=== PATIENT | male | born 1970 | race Caucasian/White ===

== ENCOUNTER 2017-09-14 10:26 | Observation (INO) ==
[2017-09-14 10:56] LABS: Basophils # 0.1 K/mcL (0.0-0.2); Basophils % 0.7 %; Eosinophils # 0.3 K/mcL (0.0-0.6); Hematocrit 47.8 % (37.5-50.1); Hemoglobin 15.1 g/dL (12.9-16.9); Immature Granulocytes % 0.7 % (0-4); Lymphocytes % 26.5 %; Mean Corpuscular HGB Conc 31.6 g/dL (31.6-35.5); Mean Corpuscular Hemoglobin 27.2 pg (28.0-33.3); Mean Corpuscular Volume 86.1 fL (83.0-100.0); Mean Platelet Volume 9.2 fL (9.4-12.4); Monocytes # 0.7 K/mcL (0.0-1.3); Neutrophils # 7.1 K/mcL (1.6-8.9); Platelet Count 396 K/mcL (140-400); Red Blood Count 5.55 M/mcL (4.19-5.50); Red Cell Distribution Width 14.5 % (11.5-14.5); Segmented Neutrophils % 63.1 %
[2017-09-14 10:57] LABS: Bilirubin,Urine Negative (Negative); Blood,Urine Negative (Negative); Clarity,Urine Clear (Clear); Color,Urine Yellow (Yellow); Glucose,Urine (UA) Normal (Normal); Ketones,Urine Negative (Negative); Leukocyte Esterase,Urine Negative (Negative); Nitrite,Urine Negative (Negative); PH,Urine 5.5 pH Units (5.0-8.0); Protein,Urine Negative (Neg-Trace); Specific Gravity,Urine 1.028 (1.010-1.025); Urobilinogen,Urine Normal (Normal)
--- NOTE | 2017-09-14 11:00 | Emergency Department Note ---
Disposition Clinical Impression: Suicidal ideation Depression Qualifiers: Depression Type: major depressive disorder Active/Remission status: currently active Major depression episode severity: severe Psychotic features: without psychotic features Disposition: Admitted As Inpatient Condition: Fair Referrals: NONE,PCP [Primary Care Provider] - Forms: ED Satisfaction Letter Psych HPI - General Chief Complaint: ED Psychiatric Symptoms Stated Complaint: SI Time Seen by Provider: 09/14/17 10:38 Source: patient Mode of arrival: private vehicle Limitations: no limitations Nursing Notes Reviewed: Yes Vital Signs Reviewed: Yes - History of Present Illness HPI Narrative: 47-year-old male presents to the ER with a chief complaint of suicidal ideation. Reports that he has not felt well for the last few days. He states this happened once before year ago when he was admitted. He states he is currently no longer on any medications as he had bad reactions to them. States that he was going to overdose on pills before still has that. He reports he does have weapons at home. No auditory or visual hallucinations. Denies any Alcohol or drug use. Pt complaint: suicidal ideation Onset (ago): day(s) Duration: constant History of similar episodes: Yes Improves with: none Worsens with: none Alleged intoxication: No Associated Psychiatric Symptoms: suicidal ideation Associated symptoms: Reports: denies other symptoms Traumatic symptoms: denies traumatic injury Treatments prior to arrival: none Self harm or harm to others: admits thoughts of self harm, has plan - Related Data Home Medications Medication Instructions Recorded Confirmed Aspirin [Ecotrin] 162 mg PO DAILY 09/17/16 09/14/17 Gabapentin [Neurontin] 800 mg PO BID 09/17/16 09/14/17 Lisinopril [Zestril] 5 mg PO DAILY 09/17/16 09/14/17 Pioglitazone HCl [Actos] 30 mg PO DAILY 09/17/16 09/14/17 glyBURIDE [GlyBURIDE] 5 mg PO BIDWM 09/17/16 09/14/17 metFORMIN [Glucophage] 1,000 mg PO BIDWM 09/17/16 09/14/17 Clopidogrel [Plavix] 75 mg PO DAILY 12/15/16 09/14/17 Atorvastatin [Lipitor] 40 mg PO HS 02/25/17 09/14/17 Pantoprazole Sodium [Protonix] 40 mg PO DAILY 02/25/17 09/14/17 Previous Rx's Medication Instructions Recorded Ranitidine HCl [Acid Physical Science Professor] 150 mg PO BID #14 tablet 09/03/17 Sucralfate [Carafate] 1 gm PO QIDAC #12 tablet 09/03/17 Allergies Allergy/AdvReac Type Severity Reaction Status Date / Time armodafinil [From Nuvigil] Allergy Difficulty Verified 09/03/17 10:38 Breathing ceftriaxone [From Rocephin] Allergy See Verified 09/03/17 10:38 Comments Iodinated Contrast- Oral and Allergy Shakiness Verified 09/03/17 10:38 IV Dye [Iodinated Contrast Media - Oral and] tapentadol [From Nucynta] Allergy Difficulty Verified 09/03/17 10:38 Breathing escitalopram [From Lexapro] AdvReac Depression Verified 09/14/17 10:34 [place] AdvReac Depression Verified 09/14/17 10:34 All systems ED: reviewed and negative except as stated. Psychiatric: Reports: anxiety, depression, suicidal thoughts. Denies: homicidal thoughts, auditory hallucinations, visual hallucinations Past Medical History - Past Medical History Attestation: Yes The following information was validated with the patient. Source: patient Medical history: Reports: arthritis, coronary artery disease, diabetes, GERD, hypertension, TIA, other Surgical history: Reports: appendectomy, cholecystectomy Psychiatric history: Reports: anxiety, depression, panic disorder - Social History Smoking Status: Never smoker Smokeless Tobacco Status: No Alcohol use: Reports: none Drug use: Reports: none Physical Exam - General Limitations: no limitations General appearance: alert, in no apparent distress - Head Head exam: atraumatic, normocephalic - Eye Eye exam: Present: normal appearance - ENT ENT exam: normal exam - Neck Neck exam: Present: normal inspection, full ROM - Chest Chest inspection: Present: normal inspection, symmetric chest wall rise - Respiratory Respiratory exam: Present: normal lung sounds bilaterally - Cardiovascular Cardiovascular exam: Present: regular rate, normal rhythm, normal heart sounds - Abdominal Exam Abdominal exam: Present: soft, Non-Tender. Absent: tenderness - Extremities Exam Extremities exam: Present: normal inspection, full ROM - Expanded Upper Extremity Exam Shoulder exam: Present: normal inspection, full ROM Arm exam: Present: normal inspection, full ROM Elbow exam: Present: normal inspection, full ROM Forearm/Wrist exam: Present: normal inspection, full ROM Hand exam: Present: normal inspection, full ROM - Expanded Lower Extremity Exam Hip/Pelvis exam: Present: normal inspection, full ROM Upper leg exam: Present: normal inspection, full ROM Knee exam: Present: normal inspection, full ROM Lower leg exam: Present: normal inspection, full ROM Ankle exam: Present: normal inspection, full ROM Foot/toe exam: Present: normal inspection, full ROM - Psychiatric Psychiatric exam: Present: anxious Course Course Narrative: Patient seen and examined. We will get medical clearance labs. He is also pink slipped for suicidal ideation - Reevaluation(s) Reevaluation #1: Patient medically cleared. Will be evaluated by the psychiatric team. Vital Signs Temperature 97.7 F 09/14/17 10:29 Pulse Rate 76 09/14/17 10:29 Respiratory Rate 20 09/14/17 10:29 Blood Pressure 148/78 09/14/17 10:29 O2 Sat by Pulse Oximetry 94 09/14/17 10:29 Temperature 97.7 F 09/14/17 10:29 Pulse Rate 76 09/14/17 10:29 Respiratory Rate 20 09/14/17 10:29 Blood Pressure 148/78 09/14/17 10:29 O2 Sat by Pulse Oximetry 94 09/14/17 10:29 Oxygen Delivery Oxygen Delivery Room Air Psych - MDM Narrative Medical decision making narrative: This documentation is done with the assistance of Dragon dictation. There may be inaccuracies in cdl bulk driver or spelling and typographical errors. I examined this patient and my medical decision-making was reviewed with the Resident Physician. I agree with the documented findings, disposition and treatment plan as described except to the extent set forth below. Patient seen and evaluated by Dr. Higgins and myself, I agree with his evaluation and treatment plan, supervised the care of the patient's stay. Patient has a history of depression and suicidal ideations. He said he felt like harming himself today. He did not go into the details but says he thinks he take pills. He said he thinks he may need admitted. He made him a no AMA, 72 hour hold for him. Lab work and then 1A evaluation. He is in agreement with this plan and is cooperative. 1300 hrs.: Patient's labs are back. 1A has evaluated him and agree that he needs admission. There are no beds here so they will hold him for psychiatric placement. He is in agreement with this plan. We will go an order him something to eat. 1400 hrs.: Psychiatric consultation is completed they thought they would have to transfer him out but a bed did become available certainly keep him here. Patient's agreement this plan. - Lab Data Lab results reviewed: Yes I reviewed the patient's lab results. Result diagrams: 09/14/17 10:49 09/14/17 10:49 Lab Results 09/14/17 09/14/17 09/14/17 Range/Units 10:48 10:48 10:49 WBC 11.2 H (4.3-11.1) K/mcL RBC 5.55 H (4.19-5.50) M/mcL Hgb 15.1 (12.9-16.9) g/dL Hct 47.8 (37.5-50.1) % MCV 86.1 (83.0-100.0) fL MCH 27.2 L (28.0-33.3) pg MCHC 31.6 (31.6-35.5) g/dL RDW 14.5 (11.5-14.5) % Plt Count 396 (140-400) K/mcL MPV 9.2 L (9.4-12.4) fL Immature Gran % 0.7 (0-4) % Seg Neutrophils % 63.1 % Lymphocytes % 26.5 % Monocytes % 6.0 % Eosinophils % 3.0 % Basophils % 0.7 % Neutrophils # 7.1 (1.6-8.9) K/mcL Lymphocytes # 3.0 (0.6-4.6) K/mcL Monocytes # 0.7 (0.0-1.3) K/mcL Eosinophils # 0.3 (0.0-0.6) K/mcL Basophils # 0.1 (0.0-0.2) K/mcL Sodium (136-145) mEq/L Potassium (3.5-5.1) mEq/L Chloride (98-107) mEq/L Carbon Dioxide (23-29) mEq/L BUN (6-20) mg/dL Creatinine (0.70-1.30) mg/dL Est GFR ( Amer) (> 60) Est GFR (Non-Af Amer) (> 60) BUN/Creatinine Ratio (6-26) Glucose (70-105) mg/dL Calculated Osmolality (280-300) Calcium (8.6-10.3) mg/dL TSH (0.340-5.600) mcIU/mL Urine Color Yellow (Yellow) Urine Clarity Clear (Clear) Urine pH 5.5 (5.0-8.0) pH Units Ur Specific [place] 1.028 H (1.010-1.025) Urine Protein Negative (Neg-Trace) mg/dL Urine Glucose (UA) Normal (Normal) mg/dL Urine Ketones Negative (Negative) mg/dL Urine Blood Negative (Negative) Urine Nitrite Negative (Negative) Urine Bilirubin Negative (Negative) Urine Urobilinogen Normal (Normal) mg/dL Ur Leukocyte Esterase Negative (Negative) Salicylates (15.0-30.0) mg/dL Urine Opiates Screen Negative (Ifqkdv=285) ng/mL Acetaminophen (10-30) mcg/mL Ur Barbiturates Screen Negative (Pczvec=315) ng/mL Ur Phencyclidine Scrn Negative (Cutoff=25) ng/mL Ur Amphetamines Screen Negative (Drsctg=9431) ng/mL U Benzodiazepines Scrn Negative (Yvaemc=650) ng/mL Urine Cocaine Screen Negative (Cutoff= 300) ng/mL U Marijuana (THC) Screen Negative (Cutoff = 50) ng/mL Ethyl Alcohol (0-10) mg/dL 09/14/17 Range/Units 10:49 WBC (4.3-11.1) K/mcL RBC (4.19-5.50) M/mcL Hgb (12.9-16.9) g/dL Hct (37.5-50.1) % MCV (83.0-100.0) fL MCH (28.0-33.3) pg MCHC (31.6-35.5) g/dL RDW (11.5-14.5) % Plt Count (140-400) K/mcL MPV (9.4-12.4) fL Immature Gran % (0-4) % Seg Neutrophils % % Lymphocytes % % Monocytes % % Eosinophils % % Basophils % % Neutrophils # (1.6-8.9) K/mcL Lymphocytes # (0.6-4.6) K/mcL Monocytes # (0.0-1.3) K/mcL Eosinophils # (0.0-0.6) K/mcL Basophils # (0.0-0.2) K/mcL Sodium 137 (136-145) mEq/L Potassium 4.1 (3.5-5.1) mEq/L Chloride 103 (98-107) mEq/L Carbon Dioxide 26 (23-29) mEq/L BUN 9 (6-20) mg/dL Creatinine 0.80 (0.70-1.30) mg/dL Est GFR ( Amer) > 60 (> 60) Est GFR (Non-Af Amer) > 60 (> 60) BUN/Creatinine Ratio 11 (6-26) Glucose 150 H (70-105) mg/dL Calculated Osmolality 286 (280-300) Calcium 9.3 (8.6-10.3) mg/dL TSH 2.632 (0.340-5.600) mcIU/mL Urine Color (Yellow) Urine Clarity (Clear) Urine pH (5.0-8.0) pH Units Ur Specific [place] (1.010-1.025) Urine Protein (Neg-Trace) mg/dL Urine Glucose (UA) (Normal) mg/dL Urine Ketones (Negative) mg/dL Urine Blood (Negative) Urine Nitrite (Negative) Urine Bilirubin (Negative) Urine Urobilinogen (Normal) mg/dL Ur Leukocyte Esterase (Negative) Salicylates < 5.0 L (15.0-30.0) mg/dL Urine Opiates Screen (Jazvpk=421) ng/mL Acetaminophen < 1.0 L (10-30) mcg/mL Ur Barbiturates Screen (Zbkxaj=385) ng/mL Ur Phencyclidine Scrn (Cutoff=25) ng/mL Ur Amphetamines Screen (Dveggx=8666) ng/mL U Benzodiazepines Scrn (Liueoo=071) ng/mL Urine Cocaine Screen (Cutoff= 300) ng/mL U Marijuana (THC) Screen (Cutoff = 50) ng/mL Ethyl Alcohol < 10 (0-10) mg/dL Psychiatric Medical Clearance - Medical Clearance Checklist Medical History: Suicidal ideation (Acute) Depression (Acute) Abdominal pain (Inactive) Anxiety disorder (Inactive) Depression (Inactive) Peptic ulcer (Inactive) Vertigo (Inactive) No Social History Section defined Current Vitals: Last Vital Signs Temp 97.7 F 09/14/17 10:29 Pulse 76 09/14/17 10:29 Resp 20 09/14/17 10:29 BP 148/78 09/14/17 10:29 Pulse Ox 94 09/14/17 10:29 Psychiatric Lab Panel: Drug Levels and Toxicity 09/14/17 09/14/17 10:48 10:49 Urine Opiates Screen Negative Acetaminophen < 1.0 L Ur Barbiturates Screen Negative Ur Phencyclidine Scrn Negative Ur Amphetamines Screen Negative U Benzodiazepines Scrn Negative Urine Cocaine Screen Negative U Marijuana (THC) Screen Negative Ethyl Alcohol < 10 Abnormal Labs: Abnormal lab results WBC 11.2 K/mcL (4.3-11.1) H 09/14/17 10:49 RBC 5.55 M/mcL (4.19-5.50) H 09/14/17 10:49 MCH 27.2 pg (28.0-33.3) L 09/14/17 10:49 MPV 9.2 fL (9.4-12.4) L 09/14/17 10:49 Glucose 150 mg/dL (70-105) H 09/14/17 10:49 Ur Specific [place] 1.028 (1.010-1.025) H 09/14/17 10:48 Salicylates < 5.0 mg/dL (15.0-30.0) L 09/14/17 10:49 Acetaminophen < 1.0 mcg/mL (10-30) L 09/14/17 10:49
[2017-09-14 11:07] LABS: Amphetamine Screen,Urine Negative ng/mL (Cutoff=1000); Barbiturate Screen,Urine Negative ng/mL (Cutoff=200); Benzodiazepines Screen,Urine Negative ng/mL (Cutoff=200); Cannabinoid Screen,Urine Negative ng/mL (Cutoff = 50); Cocaine Screen,Urine Negative ng/mL (Cutoff= 300); Opiate Screen,Urine Negative ng/mL (Cutoff=300); Phencyclidine Screen,Urine Negative ng/mL (Cutoff=25)
[2017-09-14 11:11] LABS: Acetaminophen < 1.0 mcg/mL (10-30); Ethanol < 10 mg/dL (0-10); Salicylate < 5.0 mg/dL (15.0-30.0)
[2017-09-14 11:19] LABS: BUN/Creatinine Ratio 11 (6-26); Blood Urea Nitrogen 9 mg/dL (6-20); Calcium 9.3 mg/dL (8.6-10.3); Carbon Dioxide 26 mEq/L (23-29); Chloride 103 mEq/L (98-107); Glucose 150 mg/dL (70-105); Osmolality,Calculated 286 (280-300); Potassium 4.1 mEq/L (3.5-5.1); Sodium 137 mEq/L (136-145); eGFR For African Americans > 60 (> 60); eGFR For Non-African Americans > 60 (> 60)
[2017-09-14 11:46] LABS: Thyroid Stimulating Hormone 2.632 mcIU/mL (0.340-5.600)
[2017-09-14] MEDS ORDERED: Haloperidol Lactate 5 MG/ML VIAL IM PRN (16:32)
[2017-09-14] MEDS ORDERED: traZODone 50 MG TABLET PO PRN (16:32)
[2017-09-14] MEDS ORDERED: MOM Conc 10 ML UD.LIQ PO PRN (16:32)
[2017-09-14] MEDS ORDERED: hydrOXYzine pamoate 25 MG CAPSULE PO PRN (16:32)
[2017-09-14] MEDS ORDERED: *HR* LORazepam 2 MG/ML VIAL IM PRN (16:32)
[2017-09-14] MEDS ORDERED: Acetaminophen 325 MG TABLET PO PRN (16:32)
[2017-09-14] MEDS ORDERED: *HR* LORazepam 1 MG TABLET PO PRN (16:32)
[2017-09-14] MEDS ORDERED: Mag Hydrox/Al Hydrox/Simeth 30 ML UDC PO PRN (16:32)
[2017-09-14] MEDS: Sucralfate 1 GM TABLET PO SCH ×2 (17:40→21:08)
[2017-09-14] MEDS: *HR* Metformin 500 MG TABLET PO SCH (17:40)
[2017-09-14] MEDS: *HR* GlyBURIDE 5 MG TABLET PO SCH (17:47)
[2017-09-14] MEDS: Gabapentin 400 MG CAPSULE PO SCH (21:08)
[2017-09-14] MEDS: Famotidine 20 MG TABLET PO SCH (21:08)
[2017-09-14] MEDS ORDERED: Aspirin Enteric Coated 81 MG Tablet PO SCH (22:00)
[2017-09-15] MEDS: Gabapentin 400 MG CAPSULE PO SCH (08:11)
[2017-09-15] MEDS: *HR* Metformin 500 MG TABLET PO SCH (08:11)
[2017-09-15] MEDS: Sucralfate 1 GM TABLET PO SCH ×2 (08:11→11:35)
[2017-09-15] MEDS: *HR* GlyBURIDE 5 MG TABLET PO SCH (08:12)
[2017-09-15] MEDS: Famotidine 20 MG TABLET PO SCH (08:12)
[2017-09-15] MEDS ORDERED: *HR* Pioglitazone 30 MG TABLET PO SCH (09:00)
[2017-09-15 09:20] VITALS: BP 139/70
--- NOTE | 2017-09-15 13:35 | Discharge Summary ---
Date of Encounter: 09/15/17 Time of Encounter: 13:00 History of Present Illness Chief complaint: "if this was how life was going to be, that I don't want to live". Admitted From: Emergency Dept History of Present Illness: Mr. Guillaume is a 47 year old male who had been admitted to the unit previously but was transferred to a medical floor secondary to the concern that he may have had another TIA while on the unit. He experienced dizziness and tingling in his hands. He couldn't focus and speak even though he was trying to. Finally he was able to verbalize his thoughts and this felt very much like the TIA he had before. He said he was not actively suicidal, but felt like he was so depressed that "if this was how life was going to be, that I don't want to live ". He told me that he was struggling in his personal life and also at work secondary to his issues. "My boss wants to fire me but HR won't let him." He denies any SI/SIB/HI now. No Auditory or visual hallucinations. He felt hopeful that if he worked on correcting his medical issues, it would help his mental health. He was moved to the medical floor for evaluation and treatment. Past Med Surg Social Fam HX - Past Medical History Medical history: arthritis, coronary artery disease, diabetes, GERD, hypertension, TIA, other - Past Psychiatric History Psychiatric history: Reports: anxiety, depression, previous psychiatric hospitalization Past psychiatric history details: sporadic history of outpatient treatment. None compliance with meds secondary to side effects. Both they were effective at times. Family psychiatric history: Yes (All three of his children) Family History of Suicide: None - Past Surgical History Surgical History: appendectomy, cholecystectomy - Social History Smoking Status: Never smoker Smokeless Tobacco Status: No Alcohol use: none Drug use: none Occupational status: employed Current living situation: Home - Independent Activity Level: Independent ambulation Recent Out of Country Travel Within the Last 8 Weeks: No Exposure or Possible Exposure to Illness During Travel: No - Family History Father History Unknown: Yes Adopted: No Hx Family Cardiac Disorders: Yes (PR) Hx Family Respiratory Disorders: No Hx Family Cancer: No Hx Family GI Disorders: Yes (Acid reflux) Hx Family Genitourinary Disorders: Yes (Renal disease) Hx Family Endocrine Disorder: No Hx Family Musculoskeletal Disorders: No Hx Family Neuromuscular Disorders: No Hx Family Neurologic Disorders: No Hx Family HEENT Disorders: No Hx Family Autoimmune Disorders: No Hx Family Reproductive Disorders: No Hx Family Psychosocial Disorders: No Hx Family Medical Disorders: No Medications - Discharge Medications Aspirin [Ecotrin] 162 mg PO DAILY 09/17/16 [History] Gabapentin [Neurontin] 800 mg PO BID 09/17/16 [History] Lisinopril [Zestril] 5 mg PO DAILY 09/17/16 [History] Pioglitazone HCl [Actos] 30 mg PO DAILY 09/17/16 [History] glyBURIDE [GlyBURIDE] 5 mg PO BIDWM 09/17/16 [History] metFORMIN [Glucophage] 1,000 mg PO BIDWM 09/17/16 [History] Clopidogrel [Plavix] 75 mg PO DAILY 12/15/16 [History] Atorvastatin [Lipitor] 40 mg PO HS 02/25/17 [History] Pantoprazole Sodium [Protonix] 40 mg PO DAILY 02/25/17 [History] FLUoxetine HCl [Prozac] 20 mg PO DAILY 30 Days #30 capsule 09/19/17 [Rx] Famotidine [Pepcid] 20 mg PO BID tablet 09/19/17 [Rx] hydrOXYzine pamoate [HydrOXYzine Pamoate] 25 mg PO TID PRN 30 Days #60 capsule 09/19/17 [Rx] traZODone [TraZODone] 50 mg PO HS PRN 30 Days #30 tablet 09/19/17 [Rx] 3 Allergy/AdvReac Type Severity Reaction Status Date / Time armodafinil [From Nuvigil] Allergy Difficulty Verified 09/03/17 10:38 Breathing ceftriaxone [From Rocephin] Allergy See Verified 09/03/17 10:38 Comments Iodinated Contrast- Oral and Allergy Shakiness Verified 09/03/17 10:38 IV Dye [Iodinated Contrast Media - Oral and] tapentadol [From Nucynta] Allergy Difficulty Verified 09/03/17 10:38 Breathing escitalopram [From Lexapro] AdvReac Depression Verified 09/14/17 10:34 [place] AdvReac Depression Verified 09/14/17 10:34 Review of Systems Respiratory: Reports: other (SOB) Musculoskeletal: Reports: back pain, other (weakness) Neurological: Reports: weakness, confusion, other (expressive aphasia) Psychiatric: Reports: depression, anxiety, confusion, difficulty concentrating Mental Status Exam - Mental Status Exam Patient orientation: Yes Person, Yes Time, Yes Place, Yes Circumstance Level of alertness: Sedated Patient appearance: Unkempt, Obese (morbid) Behavior: anxious, tearful Psychomotor activity: Slowed (tired) Eye contact: Maintains Eye Contact Mood description: Depressed, Anxious Affect description: congruent with mood Speech pattern: Normal rate, Normal rhythm, Normal tone, Appropriate Speech Volume: Normal Thought process: Intact, Logical, Linear, Goal Oriented Thought Content: Yes Intact Judgment: Fair Insight: Partial Results - Vital Signs Vital signs: Temp Pulse Resp BP Pulse Ox 97.0 F L 68 18 139/70 96 09/15/17 09:00 09/15/17 09:00 09/15/17 09:00 09/15/17 09:00 09/14/17 15:06 - Labs Labs: Laboratory Last Values WBC 11.2 K/mcL (4.3-11.1) H 09/14/17 10:49 RBC 5.55 M/mcL (4.19-5.50) H 09/14/17 10:49 Hgb 15.1 g/dL (12.9-16.9) 09/14/17 10:49 Hct 47.8 % (37.5-50.1) 09/14/17 10:49 MCV 86.1 fL (83.0-100.0) 09/14/17 10:49 MCH 27.2 pg (28.0-33.3) L 09/14/17 10:49 MCHC 31.6 g/dL (31.6-35.5) 09/14/17 10:49 RDW 14.5 % (11.5-14.5) 09/14/17 10:49 Plt Count 396 K/mcL (140-400) 09/14/17 10:49 MPV 9.2 fL (9.4-12.4) L 09/14/17 10:49 Immature Gran % 0.7 % (0-4) 09/14/17 10:49 Seg Neutrophils % 63.1 % 09/14/17 10:49 Lymphocytes % 26.5 % 09/14/17 10:49 Monocytes % 6.0 % 09/14/17 10:49 Eosinophils % 3.0 % 09/14/17 10:49 Basophils % 0.7 % 09/14/17 10:49 Neutrophils # 7.1 K/mcL (1.6-8.9) 09/14/17 10:49 Lymphocytes # 3.0 K/mcL (0.6-4.6) 09/14/17 10:49 Monocytes # 0.7 K/mcL (0.0-1.3) 09/14/17 10:49 Eosinophils # 0.3 K/mcL (0.0-0.6) 09/14/17 10:49 Basophils # 0.1 K/mcL (0.0-0.2) 09/14/17 10:49 Sodium 137 mEq/L (136-145) 09/14/17 10:49 Potassium 4.1 mEq/L (3.5-5.1) 09/14/17 10:49 Chloride 103 mEq/L (98-107) 09/14/17 10:49 Carbon Dioxide 26 mEq/L (23-29) 09/14/17 10:49 BUN 9 mg/dL (6-20) 09/14/17 10:49 Creatinine 0.80 mg/dL (0.70-1.30) 09/14/17 10:49 Est GFR ( Amer) > 60 (> 60) 09/14/17 10:49 Est GFR (Non-Af Amer) > 60 (> 60) 09/14/17 10:49 BUN/Creatinine Ratio 11 (6-26) 09/14/17 10:49 Glucose 150 mg/dL (70-105) H 09/14/17 10:49 POC Glucose 151 (58-89) H 09/15/17 06:59 Calculated Osmolality 286 (280-300) 09/14/17 10:49 Calcium 9.3 mg/dL (8.6-10.3) 09/14/17 10:49 TSH 2.632 mcIU/mL (0.340-5.600) 09/14/17 10:49 Urine Color Yellow (Yellow) 09/14/17 10:48 Urine Clarity Clear (Clear) 09/14/17 10:48 Urine pH 5.5 pH Units (5.0-8.0) 09/14/17 10:48 Ur Specific [place] 1.028 (1.010-1.025) H 09/14/17 10:48 Urine Protein Negative mg/dL (Neg-Trace) 09/14/17 10:48 Urine Glucose (UA) Normal mg/dL (Normal) 09/14/17 10:48 Urine Ketones Negative mg/dL (Negative) 09/14/17 10:48 Urine Blood Negative (Negative) 09/14/17 10:48 Urine Nitrite Negative (Negative) 09/14/17 10:48 Urine Bilirubin Negative (Negative) 09/14/17 10:48 Urine Urobilinogen Normal mg/dL (Normal) 09/14/17 10:48 Ur Leukocyte Esterase Negative (Negative) 09/14/17 10:48 Salicylates < 5.0 mg/dL (15.0-30.0) L 09/14/17 10:49 Urine Opiates Screen Negative ng/mL (Mkpnpr=785) 09/14/17 10:48 Acetaminophen < 1.0 mcg/mL (10-30) L 09/14/17 10:49 Ur Barbiturates Screen Negative ng/mL (Iazsqx=407) 09/14/17 10:48 Ur Phencyclidine Scrn Negative ng/mL (Cutoff=25) 09/14/17 10:48 Ur Amphetamines Screen Negative ng/mL (Klyxig=0667) 09/14/17 10:48 U Benzodiazepines Scrn Negative ng/mL (Nqouik=749) 09/14/17 10:48 Urine Cocaine Screen Negative ng/mL (Cutoff= 300) 09/14/17 10:48 U Marijuana (THC) Screen Negative ng/mL (Cutoff = 50) 09/14/17 10:48 Ethyl Alcohol < 10 mg/dL (0-10) 09/14/17 10:49 Diagnosis - Discharge Diagnosis (1) Depression Status: Acute Qualifiers: Depression Type: major depressive disorder Major depression recurrence: recurrent Active/Remission status: currently active Major depression episode severity: severe Psychotic features: without psychotic features Qualified Code(s): F33.2 - Major depressive disorder, recurrent severe without psychotic features (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 You will also see for Cuong Foote for outpatient psychiatric assessment and medication management services. on 10/21/2017 at 8:00am.) Functional capacity at discharge: independent ambulation Overall status at discharge: patient is not back to baseline Disposition: Admitted As Inpatient Provider Date of admission: 09/14/17 14:53 Primary care physician: PCP NONE Consults: 09/15/17 10:28 Consult to Hospitalist [CONS] Stat Consulting Provider: Stanford Wiley Reason for Consult: Rule out TIA Time Notified: 10:30 Call Completed: Yes Hospital Course Hospital course: Mr. Guillaume is a 47 year old male (see HPI)" Does patient wish to continue nicotine replacement upon disc: No - Time Spent with Patient Total time spent providing and/or coordinating discharge services: 25 min Less than 30 minutes Procedures - Procedures Procedures: Medication Management, Supportive Therapy, Group Therapy Quality - Multiple Antipsychotics Patient discharged on 2 or more antipsychotic medications: No
== END 2017-09-15 14:05 | disposition short-term general hospital (02) ==
LOC: EMEROO 10:26 → 1ANU 14:53 → INTOOBSV 14:53 → 1ANU 15:07
PROVIDERS: ADMIT Psychiatry & Neurology Psychiatry; ATTEND Psychiatry & Neurology Psychiatry

== ENCOUNTER 2017-09-15 11:42 | Observation (INO) ==
--- NOTE | 2017-09-15 14:18 | Internal Med History&Physical ---
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 transplanted heart: [place] heart Associated angina: without angina Qualified Code(s): I25.10 - Atherosclerotic heart disease of [place] coronary artery without angina pectoris (4) Obesity Status: Chronic Chronic Qualifiers: Obesity type: due to excess calories Obesity classification: adult class 2 (BMI 35 - 39.9) Serious obesity comorbidity presence: without serious comorbidity Body mass index: unspecified BMI Qualified Code(s): E66.09 - Other obesity due to excess calories (5) Hyperlipemia Status: Chronic Chronic we will repeat lipid profile in a.m. Qualifiers: Hyperlipidemia type: pure hypercholesterolemia Qualified Code(s): E78.00 - Pure hypercholesterolemia, unspecified; E78.0 - Pure hypercholesterolemia (6) HTN (hypertension) Status: Chronic Chronic well controlled Qualifiers: Hypertension type: essential hypertension Qualified Code(s): I10 - Essential (primary) hypertension (7) GERD (gastroesophageal reflux disease) Status: Chronic Chronic without esophagitis Qualifiers: Esophagitis presence: without esophagitis Qualified Code(s): K21.9 - Gastro -esophageal reflux disease without esophagitis (8) Depression Status: Chronic Chronic we will reconsult psych to follow Qualifiers: Depression Type: major depressive disorder Major depression recurrence: recurrent Active/Remission status: currently active Major depression episode severity: severe Psychotic features: without psychotic features Qualified Code(s): F33.2 - Major depressive disorder, recurrent severe without psychotic features (9) Suicidal ideation Status: Chronic Patient just [facility] is no longer suicidal reconsult psych to follow when necessary Internal Medicine - H&P: HPI Chief complaint: difficulty speaking Admitted From: Intrahospital Transfer Plans for Post Hospital Care: Home History of present illness: Mr. Guillaume is a 47 year old male Patient with history of high cholesterol, diabetes, hypertension, CAD said had 2 stents in February of last year done at the [facility] patient also has history of morbid obesity GERD and history of TIA patient was admitted to psych due to suicidal ideation while in the psych unit this morning he had dizziness and an episode of difficulty getting his words out he knew what he wanted to say but when he tried to speak and he could not speak lasted a few seconds to a few minutes and now back to normal. He Is now being admitted to medical service . per psychiatric Dr. Dahl says patient is frustrated because of so much medical problem that is why he was having a suicidal ideation and does not feel that patient will kill himself and that needed his medical problem to be addressed . he is his now being admitted to medical service. He denies any chest pain or shortness of breath no palpitation no more difficulty with speech exam was unremarkable patient will be admitted and have neurological workup for TIA and neurology consult He has seen Dr. marsh in the past... no focal deficit Past Med Surg Social Fam HX - Past Medical History Medical history: arthritis, coronary artery disease, diabetes, GERD, hypertension, TIA, other Psychiatric history: anxiety, depression, panic disorder, other - Past Surgical History Surgical History: appendectomy, cholecystectomy - Social History Smoking Status: Never smoker Smokeless Tobacco Status: No Alcohol use: none Drug use: none - Family History Father Adopted: No Hx Family Cardiac Disorders: Yes ([place]) Hx Family Respiratory Disorders: No Hx Family Cancer: No Hx Family GI Disorders: Yes (Acid reflux) Hx Family Endocrine Disorder: No Hx Family Neuromuscular Disorders: No Hx Family Neurologic Disorders: No Hx Family HEENT Disorders: No Hx Family Autoimmune Disorders: No Internal Medicine - H&P: Meds Aspirin [Ecotrin] 162 mg PO DAILY 09/17/16 [History] Gabapentin [Neurontin] 800 mg PO BID 09/17/16 [History] Lisinopril [Zestril] 5 mg PO DAILY 09/17/16 [History] Pioglitazone HCl [Actos] 30 mg PO DAILY 09/17/16 [History] glyBURIDE [GlyBURIDE] 5 mg PO BIDWM 09/17/16 [History] metFORMIN [Glucophage] 1,000 mg PO BIDWM 09/17/16 [History] Clopidogrel [Plavix] 75 mg PO DAILY 12/15/16 [History] Atorvastatin [Lipitor] 40 mg PO HS 02/25/17 [History] Pantoprazole Sodium [Protonix] 40 mg PO DAILY 02/25/17 [History] Ranitidine HCl [Acid Solution Mixer] 150 mg PO BID #14 tablet 09/03/17 [Rx] Sucralfate [Carafate] 1 gm PO QIDAC #12 tablet 09/03/17 [Rx] 3 Allergy/AdvReac Type Severity Reaction Status Date / Time armodafinil [From Nuvigil] Allergy Difficulty Verified 09/03/17 10:38 Breathing ceftriaxone [From Rocephin] Allergy See Verified 09/03/17 10:38 Comments Iodinated Contrast- Oral and Allergy Shakiness Verified 09/03/17 10:38 IV Dye [Iodinated Contrast Media - Oral and] tapentadol [From Nucynta] Allergy Difficulty Verified 09/03/17 10:38 Breathing escitalopram [From Lexapro] AdvReac Depression Verified 09/14/17 10:34 [place] AdvReac Depression Verified 09/14/17 10:34 All Systems PM: A 10-system review of systems was performed and is negative for pertinent findings except as documented above in the HPI. - Constitutional Constitutional: no chills, no fever(s), no night sweats - EENT Eyes: no change in vision, no discharge, no pain, no photophobia Ears: no ear discharge, no ear pain, no tinnitus Nose, mouth and throat: no dysphagia, no nasal discharge, no neck pain, no sore throat - Cardiovascular Cardiovascular ROS IM: no chest pain, no diaphoresis, no dyspnea, no lightheadedness, no palpitations, no syncope - Respiratory Respiratory: no cough, no dyspnea, no wheezing, no excessive phlegm production - Gastrointestinal Gastrointestinal: no abdominal pain, no diarrhea, no hematemesis, no hematochezia, no melena, no nausea, no vomiting - Musculoskeletal Musculoskeletal ROS IM: no numbness, no tingling - Integumentary Integumentary IM: no rash, no unusual bruising - Neurological Neurological ROS: abnormal speech - Head Head exam: Present: atraumatic, normocephalic - Eye Eye exam: Present: PERRL, conjuntiva pink, sclera anicteric Pupils: Present: PERRL - Neck Neck exam general surgery: Present: supple, trachea midline. Absent: lymphadenopathy - Respiratory Respiratory exam: Present: CTAB. Absent: accessory muscle use, rales, rhonchi, wheezes - Cardiovascular Cardiovascular exam: Present: RRR, +S1, +S2. Absent: diastolic murmur, gallop, rubs, systolic murmur - GI/Abdominal GI/Abdominal exam: Present: normal bowel sounds, soft, no peritoneal signs. Absent: distended, tenderness - Extremities Exam Extremities exam: Present: warm, radial pulses palpable and symmetrical. Absent : calf tenderness, cyanotic, pedal edema - Neurological Exam Neurological exam: Present: CN II-XII intact, oriented X3, no focal deficits. Absent: pronater drift, facial droop, speech deficit - Skin Skin exam: Present: dry, intact
[2017-09-15] MEDS ORDERED: Acetaminophen 325 MG TABLET PO PRN (14:26)
[2017-09-15] MEDS ORDERED: Naloxone 0.4 MG/ML INJ IVP PRN (14:26)
[2017-09-15] MEDS: Sucralfate 1 GM TABLET PO SCH ×2 (17:36→20:23)
--- NOTE | 2017-09-15 17:44 | Neurology - Consult Note ---
Date of Encounter: 09/15/17 Time of Encounter: 17:36 Assessment and Plan (1) TIA (transient ischemic attack) Current Visit: No Status: Acute So, this 47 year old man with multiple medical issues, notably CAd, s/p stent placement, morbid obesity, HTN, hyperlipidemia who developed few episodes of TIA symptoms, mainly short lasting dizziness, associated with speech difficulty , lasting few minutes in duration while on a combination of aspirin and plavix. The Symptoms are short lasting and during the episode he has speech difficulty, dizziness but no focal weakness. Causes can be few, including cardiac and vascular conditions, especially considering his history of CAD, and the fact that he was looking really pale. Therefore cardiac conditions, cardiac dysarrhythima is also in the different. Neurologically, major concerns for TIAs, including anterior and especially posterior circulation TIAs, therefore would recommend CTA of neck and head, MRI of brain without contrast and echo already ordered. Aspirin and plavix is suffice treatment for TIA so will keep him on the regimen. Psychiatry to follow up with his psychiatric issues. Qualifiers: Transient cerebral ischemia type: unspecified Qualified Code(s): G45.9 - Transient cerebral ischemic attack, unspecified History of Present Illness Chief complaint: TIA HPI: Mr. Guillaume is a 47 year old male with PMh significant for CAD, s/p stent placement , anxiety, ATIYA on CPAP, morbid obesity, HTN, history of TIA who developed an episode of dizziness, and speech difficulty while being treated for psychiatric conditions at [facility]. Patient was admitted initially for suicidal ideation. While in the [facility], he developed an episode of dizziness while in sitting position, this was followed by feeling tried, and speech difficulty, could not get the words out and looking pale. Symptoms lasted less than 10 minutes in duration and totally resolved. He has had two other similar spells in the past, within the last one and half years. The first episode was similar with dizziness and speech difficulty. The second episode was more prolonged lasting about 2 hours in duration. He has been taking a combination of plavix and baby aspirin for his cardiac condition and TIAs. He is feeling fine now. He states that he has significant anxiety and he used to take a bunch of medications for his psych issues and one time he was having problems of these medications and he discontinued all of them. he states that when he is alone he got all the thoughts to a point that he wanted to end all of these and he says that he is to be on something. Past Med Surg Social Fam HX - Past Medical History Medical history: arthritis, coronary artery disease, diabetes, GERD, hypertension, TIA, other Psychiatric history: anxiety, depression, panic disorder, other - Past Surgical History Surgical History: appendectomy, cholecystectomy - Social History Smoking Status: Never smoker Smokeless Tobacco Status: No Alcohol use: none Drug use: none - Family History Father Adopted: No Hx Family Cardiac Disorders: Yes ([place]) Hx Family Respiratory Disorders: No Hx Family Cancer: No Hx Family GI Disorders: Yes (Acid reflux) Hx Family Endocrine Disorder: No Hx Family Neuromuscular Disorders: No Hx Family Neurologic Disorders: No Hx Family HEENT Disorders: No Hx Family Autoimmune Disorders: No Medications and Allergies Aspirin [Ecotrin] 162 mg PO DAILY 09/17/16 [History] Gabapentin [Neurontin] 800 mg PO BID 09/17/16 [History] Lisinopril [Zestril] 5 mg PO DAILY 09/17/16 [History] Pioglitazone HCl [Actos] 30 mg PO DAILY 09/17/16 [History] glyBURIDE [GlyBURIDE] 5 mg PO BIDWM 09/17/16 [History] metFORMIN [Glucophage] 1,000 mg PO BIDWM 09/17/16 [History] Clopidogrel [Plavix] 75 mg PO DAILY 12/15/16 [History] Atorvastatin [Lipitor] 40 mg PO HS 02/25/17 [History] Pantoprazole Sodium [Protonix] 40 mg PO DAILY 02/25/17 [History] Ranitidine HCl [Acid Health Science Writer] 150 mg PO BID #14 tablet 09/03/17 [Rx] Sucralfate [Carafate] 1 gm PO QIDAC #12 tablet 09/03/17 [Rx] 3 Allergy/AdvReac Type Severity Reaction Status Date / Time armodafinil [From Nuvigil] Allergy Difficulty Verified 09/03/17 10:38 Breathing ceftriaxone [From Rocephin] Allergy See Verified 09/03/17 10:38 Comments Iodinated Contrast- Oral and Allergy Shakiness Verified 09/03/17 10:38 IV Dye [Iodinated Contrast Media - Oral and] tapentadol [From Nucynta] Allergy Difficulty Verified 09/03/17 10:38 Breathing escitalopram [From Lexapro] AdvReac Depression Verified 09/14/17 10:34 [place] AdvReac Depression Verified 09/14/17 10:34 All Systems: A 10-system review of systems was performed and is negative for pertinent findings except as documented above in the HPI. Physical Examination - Vital Signs Vital Signs: Initial Vital Signs Temp Pulse Resp BP Pulse Ox 97.8 F 71 16 124/72 97 09/15/17 14:21 09/15/17 14:21 09/15/17 14:21 09/15/17 14:21 09/15/17 14:21 - Neurologic Detailed motor examination: full strength in all major muscle groups Motor examination - right side: 5/5: deltoids, biceps, triceps, wrist flexion, wrist extension, manager purchasing, hip flexors, tibialis Anterior, quadriceps, toe extension (EHL), plantarflexion Motor examination - left side: 5/5: deltoids, biceps, triceps, wrist flexion, wrist extension, hip flexors, manager purchasing, quadriceps, tibialis Anterior, toe extension (EHL), plantarflexion Mental Status Examination: awake, alert, oriented to person, oriented to place, oriented to time, follows commands appropriately, answers questions appropriately, no agnosia, no aphasia, no aproxia Cranial nerve examination: PERRL, EOMI, visual garcia intact, corneal reflexes brisk symmetrically, sensory to face intact, mastication intact, no facial asymmetry is present, no dysarthria, hearing is intact symmetrically, soft palate elevates bilaterally upon phonation, gag reflex intact, flexes SCM and trapezius muscles symmetrically with full power, tongue protrudes midline, no atrophy or facial fasiculations present Cerebellar examination: no dysmetria, performs finger to nose and heel to anand symmetrically without ataxia, no gait ataxia, no truncal ataxia, no difficulty with rapid alternating movements Consult Discharge Plan - Plan Referrals: NONE,PCP [Primary Care Provider] -
[2017-09-15] MEDS ORDERED: Perflutren Lipid Microsphere 1.3 ML in 0.9 % Sodium Chloride 8.7 ML IVP ONE (19:55)
[2017-09-15] MEDS ORDERED: Perflutren Lipid Microsphere 2 ML VIAL ONE (20:07)
[2017-09-15] MEDS: Famotidine 20 MG TABLET PO SCH (20:21)
[2017-09-15] MEDS: Gabapentin 400 MG CAPSULE PO SCH (20:21)
[2017-09-16 04:36] LABS: Alanine Aminotransferase 45 Units/L (7-52); Albumin 3.9 g/dL (3.5-5.7); Albumin/Globulin Ratio 1.4 (1.1-2.2); Alkaline Phosphatase 66 Units/L (34-104); Aspartate Amino Transferase 24 Units/L (13-39); BUN/Creatinine Ratio 11 (6-26); Bilirubin,Total 0.5 mg/dL (0.3-1.0); Blood Urea Nitrogen 10 mg/dL (6-20); Calcium 9.2 mg/dL (8.6-10.3); Carbon Dioxide 27 mEq/L (23-29); Chloride 103 mEq/L (98-107); Chol/HDL Ratio 3.9 (0-4.9); Cholesterol 104 mg/dL (< 200); Globulin 2.7 g/dL (2.4-3.5); Glucose 156 mg/dL (70-105); HDL Cholesterol 27 mg/dL (40-59); LDL Cholesterol,Calculated 42 mg/dL (0-99); Magnesium 1.9 mg/dL (1.6-2.6); Osmolality,Calculated 286 (280-300); Potassium 4.1 mEq/L (3.5-5.1); Sodium 137 mEq/L (136-145); Total Protein 6.6 g/dL (6.4-8.9); Triglycerides 174 mg/dL (< 150); eGFR For African Americans > 60 (> 60); eGFR For Non-African Americans > 60 (> 60)
[2017-09-16] MEDS: *HR* Enoxaparin 40 MG/0.4 ML SYRINGE SQ SCH (06:09)
[2017-09-16] MEDS: Aspirin Enteric Coated 325 MG Tablet PO SCH (09:49)
[2017-09-16] MEDS: Gabapentin 400 MG CAPSULE PO SCH ×2 (09:49→20:45)
[2017-09-16] MEDS: Famotidine 20 MG TABLET PO SCH ×2 (09:49→20:45)
[2017-09-16] MEDS: *HR* Pioglitazone 30 MG TABLET PO SCH (09:50)
[2017-09-16] MEDS: Sucralfate 1 GM TABLET PO SCH ×4 (09:50→20:44)
--- NOTE | 2017-09-16 10:12 | Internal Med Progress Note ---
Date of Encounter: 09/16/17 Time of Encounter: 10:05 - Assessment and plan (1) TIA (transient ischemic attack) Current Visit: No Status: Acute Assessment and plan: hx 2 TIAs in the past. Presented with an episode of dizziness and speech difficulty during group therapy on psychiatric unit. Symptoms lasted approximately 10 minutes. Brain MRI negative for acute infarct. Head/neck MRA with mild short segment stenosis of M2 branch of right middle cerebral artery, otherwise non-acute. No symptom recurrence. Continue home ASA, Plavix. Neurology following. Qualifiers: Transient cerebral ischemia type: unspecified Qualified Code(s): G45.9 - Transient cerebral ischemic attack, unspecified (2) Depression Current Visit: No Status: Chronic Assessment and plan: per hx. initially admitted to 1 A inpatient psychiatric unit. Denies suicidal ideation. Psychiatry consult Qualifiers: Depression Type: major depressive disorder Major depression recurrence: recurrent Active/Remission status: currently active Major depression episode severity: severe Psychotic features: without psychotic features Qualified Code(s): F33.2 - Major depressive disorder, recurrent severe without psychotic features (3) CAD (coronary artery disease) Current Visit: No Status: Chronic Assessment and plan: hx PCI with stents. Asymptomatic, denied chest pain. Continue home ASA, statin , Plavix. Qualifiers: Coronary Disease-Associated Artery/Lesion type: [place] artery [place] vs. transplanted heart: [place] heart Associated angina: without angina Qualified Code(s): I25.10 - Atherosclerotic heart disease of [place] coronary artery without angina pectoris (4) Diabetes 1.5, managed as type 2 Current Visit: No Status: Acute Assessment and plan: per hx. Blood sugars controlled. Cont home diabetes medication regimen. Monitor blood sugar and titrate PRN (5) HTN (hypertension) Current Visit: No Status: Chronic Assessment and plan: per hx. BP controlled. Cont home BP medications. Monitor BP and titrate PRN Qualifiers: Hypertension type: essential hypertension Qualified Code(s): I10 - Essential (primary) hypertension (6) DVT prophylaxis Current Visit: Yes Status: Acute Assessment and plan: lovenox - Subjective Interval history: Seen and examined at bedside. She is new to me, information obtained from chart review and patient report. Patient says he feels back to baseline. Says episode of lightheadedness and expressive aphasia lasted approx 10 minutes. Complains of left leg swelling which he says is chronic. Denies chest pain, no shortness of breath. No suicidal ideation. No thoughts of harming self. - Constitutional Vitals: Temp Pulse Resp BP Pulse Ox 97.4 F L 63 20 121/67 97 09/16/17 07:43 09/16/17 07:43 09/16/17 07:43 09/16/17 07:43 09/16/17 07:43 General appearance: Present: A&O X 3, morbidly obese - Head Head exam: Present: atraumatic, normocephalic - Eye Eye exam: Present: PERRL, conjuntiva pink, sclera anicteric Pupils: Present: PERRL - Neck Neck exam general surgery: Present: supple, trachea midline. Absent: lymphadenopathy - Respiratory Respiratory exam: Present: CTAB. Absent: accessory muscle use, rales, rhonchi, wheezes - Cardiovascular Cardiovascular exam: Present: RRR, +S1, +S2. Absent: diastolic murmur, gallop, rubs, systolic murmur - GI/Abdominal GI/Abdominal exam: Present: normal bowel sounds, soft, no peritoneal signs. Absent: distended, tenderness - Extremities Exam Extremities exam: Present: warm, radial pulses palpable and symmetrical. Absent : calf tenderness, cyanotic, pedal edema - Neurological Exam Neurological exam: Present: CN II-XII intact, oriented X3, no focal deficits. Absent: pronater drift, facial droop, speech deficit - Skin Skin exam: Present: dry, intact Internal Medicine: Result - Labs CBC & Chem 7: 09/16/17 03:43 Labs: BMP 09/16/17 03:43 Sodium 137 Potassium 4.1 Chloride 103 Carbon Dioxide 27 BUN 10 Creatinine 0.89 Glucose 156 H Calcium 9.2 Liver Function 09/16/17 Range/Units 03:43 Total Bilirubin 0.5 (0.3-1.0) mg/dL AST 24 (13-39) Units/L ALT 45 (7-52) Units/L Alkaline Phosphatase 66 (34-104) Units/L Albumin 3.9 (3.5-5.7) g/dL - Impressions Impressions Brain MRI 09/15/17 14:33 IMPRESSION: Normal MRI of the brain. Fluid within the right middle ear and mastoid air cells similar to the previous CT scan. Correlation with any signs or symptoms of right otitis media is suggested. D/ / 09/15/2017 17:25:44 Bartolo Beatty MD / madi Interpreting Provider: Bartolo Beatty MD Echocardiogram 09/15/17 14:33 Impressions: Technically sub-optimal due to body habitus. LVEF 55%. Mildly dilated left ventricle. Normal LV wall thickness and function. Moderate left ventricular diastolic dysfunction. Right ventricular size and function was not well visualized. Agitated saline administered, but image quality suboptimal to evaluate for intra-cardiac shunting. Unable to estimate RVSP due to lack of TR jet. No obvious significant valvular dysfunction. Left Ventricular Wall Motion: Rest Echo Findings All wall segments showed normal motion. Findings: Study Quality * Technically sub-optimal due to body habitus. ECG Findings * Normal sinus rhythm. Left Ventricle * LVEF 55%. * Mildly dilated left ventricle. * Normal LV wall thickness and function. * Moderate left ventricular diastolic dysfunction. Right Ventricle * Right ventricular size and function was not well visualized. Left Atrium * Mildly dilated left atrium. Right Atrium * Right atrium is not well visualized. Interatrial Septum * Agitated saline administered, but image quality suboptimal to evaluate for intra-cardiac shunting. Aortic Valve * Aortic valve not well visualized. * No aortic regurgitation. * No aortic stenosis. Mitral Valve * Normal mitral valve structure and function. * No mitral regurgitation. * No mitral stenosis. Tricuspid Valve * Tricuspid valve not well visualized. * No tricuspid regurgitation. * Unable to estimate RVSP due to lack of TR jet. Pulmonic Valve * Pulmonic valve not well visualized. Aorta * Normally sized aortic root. Pericardium * There is a trivial inferolateral pericardial effusion noted. No hemodynamic significance. IVC * The IVC is not well evaluated. Pulmonary Artery * Pulmonary artery not well visualized. Neck MRA 09/15/17 14:33 IMPRESSION: Unremarkable MR angiogram of the neck. D/ / 09/15/2017 17:24:42 Bartolo Beatty MD / madi Interpreting Provider: Bartolo Beatty MD Head MRA 09/15/17 14:37 IMPRESSION: 1. Mild short segment stenosis of an M2 branch of the right middle cerebral artery. 2. Otherwise, unremarkable MR angiogram of the [place]. D/ / 09/15/2017 17:14:47 Bartolo Beatty MD / brittany Interpreting Provider: Bartolo Beatty MD Angiography CT 09/15/17 17:50 IMPRESSION: 1. No acute intracranial abnormality. 2. CTA of the head without acute vascular abnormality. 3. Right mastoid effusion. D/ / 09/15/2017 22:22:25 Rolan Farfan / brittany Interpreting Provider: Rolan Farfan Neck CTA 09/15/17 17:50 IMPRESSION: 1. No acute intracranial abnormality. 2. CTA of the head without acute vascular abnormality. 3. Right mastoid effusion. D/ / 09/15/2017 22:22:25 Rolan Farfan / brittany Interpreting Provider: Rolan Farfan Consult Discharge Plan - Plan Referrals: NONE,PCP [Primary Care Provider] -
--- NOTE | 2017-09-16 13:06 | Neurology Progress Note ---
Date of Encounter: 09/16/17 Time of Encounter: 13:02 Assessment and Plan (1) TIA (transient ischemic attack) Current Visit: No Status: Acute Etiology unclear and likely not a true TIA. Is already on Aspirin and plavix and treatment appears adequate. Will not recommend further testing from neurology perspective. I advised him if such spell occurs in the further he may benefit from caridac rhythm monitoring. He is advised to continue the use of CPAP. weight loss encourage. Please continue medical and supportive care. Will sign off. Please call if any questions Qualifiers: Transient cerebral ischemia type: unspecified Qualified Code(s): G45.9 - Transient cerebral ischemic attack, unspecified Subjective Principal diagnosis: TIA Interval history: Patient seen and examined. He is feeling fine and no recurrent spells and his mental status appears intact. MRI of brain reported normal study. CTA of head and neck returns unremarkable. Objective - Constitutional Vitals: Temp Pulse Resp BP Pulse Ox 97.4 F L 68 20 144/72 96 09/16/17 11:41 09/16/17 11:41 09/16/17 11:41 09/16/17 11:41 09/16/17 11:41 - Neurological Exam Motor Examination: Present: full strength in all major muscle groups Motor examination - left side: 5/5: deltoids, biceps, triceps, wrist flexion, wrist extension, hip flexors, fuel cell repairer, quadriceps, tibialis Anterior, toe extension (EHL), plantarflexion Mental Status Examination: Present: awake, alert, oriented to person, oriented to place, oriented to time, follows commands appropriately, answers questions appropriately, no agnosia, no aphasia, no aproxia Cranial nerve examination: Present: PERRL, EOMI, visual garcia intact, corneal reflexes brisk symmetrically, sensory to face intact, mastication intact, no facial asymmetry is present, no dysarthria, hearing is intact symmetrically, soft palate elevates bilaterally upon phonation, gag reflex intact, flexes SCM and trapezius muscles symmetrically with full power, tongue protrudes midline, no atrophy or facial fasiculations present Cerebellar examination: Present: no dysmetria, performs finger to nose and heel to anand symmetrically without ataxia, no gait ataxia, no truncal ataxia, no difficulty with rapid alternating movements Results - Laboratory Findings CBC and BMP: 09/16/17 03:43 Abnormal lab findings: Abnormal lab results Glucose 156 mg/dL (70-105) H 09/16/17 03:43 POC Glucose 133 (58-89) H 09/15/17 15:08 Triglycerides 174 mg/dL (< 150) H 09/16/17 03:43 VLDL Cholesterol, Calc 35 mg/dL (< 31) H 09/16/17 03:43 HDL Cholesterol 27 mg/dL (40-59) L 09/16/17 03:43 - Diagnostic Findings Additional findings: CT/CT angio neck IMPRESSION: 1. No acute intracranial abnormality. 2. CTA of the head without acute vascular abnormality. 3. Right mastoid effusion. MR/MR head/brain wo con IMPRESSION: Normal MRI of the brain. Fluid within the right middle ear and mastoid air cells similar to the previous CT scan. Correlation with any signs or symptoms of right otitis media is suggested. EV/EV echocardiogram w enhance Impressions: Technically sub-optimal due to body habitus. LVEF 55%. Mildly dilated left ventricle. Normal LV wall thickness and function. Moderate left ventricular diastolic dysfunction. Right ventricular size and function was not well visualized. Agitated saline administered, but image quality suboptimal to evaluate for intra-cardiac shunting. Unable to estimate RVSP due to lack of TR jet. No obvious significant valvular dysfunction. Consult Discharge Plan - Plan Referrals: NONE,PCP [Primary Care Provider] -
[2017-09-17] MEDS: *HR* Enoxaparin 40 MG/0.4 ML SYRINGE SQ SCH (06:16)
[2017-09-17] MEDS: Sucralfate 1 GM TABLET PO SCH (07:17)
--- NOTE | 2017-09-17 08:20 | Discharge Summary ---
Date of Encounter: 09/17/17 Time of Encounter: 08:16 - Discharge Diagnosis (1) Dizziness Priority: Primary Status: Resolved Comments: hx 2 TIAs in the past. Presented with an episode of dizziness and speech difficulty during group therapy on psychiatric unit. Symptoms lasted approximately 10 minutes. Brain MRI negative for acute infarct. Head/neck MRA with mild short segment stenosis of M2 branch of right middle cerebral artery, otherwise non-acute. TTE with EF 55%, no significant valvular dysfunction, no wall motion abnormalities. Evaluated by neurology who did not suspect true TIA. Symptoms possibly secondary to transient hypoxia in the setting of suspected morbid obesity hypoventilation syndrome or narcolepsy. Of note, no hypoxia documented while inpatient. Patient maintain adequate oxygen saturation at 92% or above at rest and with ambulation. No symptom recurrence while inpatient. Continue home ASA, Plavix. Would like to place Holter monitor upon discharge however unable to do this as he is being discharged to inpatient psychiatric unit. Recommend follow-up with PCP in 1-2 weeks (2) Depression Priority: Primary Status: Acute Comments: per hx. initially admitted to 1 A inpatient psychiatric unit. Denies suicidal ideation. Discharged to inpatient psychiatric unit Qualifiers: Depression Type: major depressive disorder Major depression recurrence: recurrent Active/Remission status: currently active Major depression episode severity: severe Psychotic features: without psychotic features Qualified Code(s): F33.2 - Major depressive disorder, recurrent severe without psychotic features (3) CAD (coronary artery disease) Priority: Secondary Status: Chronic Comments: hx PCI with stents. Asymptomatic, denied chest pain. Continue home ASA, statin , Plavix. Qualifiers: Coronary Disease-Associated Artery/Lesion type: [place] artery [place] vs. 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 Blood sugars variable but acceptable. Cont home diabetes medication regimen. (5) HTN (hypertension) Priority: Secondary Status: Chronic Comments: per hx. BP controlled. Cont home BP medication. Qualifiers: Hypertension type: essential hypertension Qualified Code(s): I10 - Essential (primary) hypertension (6) Leg edema, left Priority: Secondary Status: Chronic Comments: Chronic per patient. Follows with local wound care clinic. No evidence of infection. Bilateral lower extremity venous Dopplers negative for DVT. Follow up with wound care clinic on 09/23/17 as previously planned (7) ATIYA (obstructive sleep apnea) Priority: Secondary Status: Chronic Comments: per hx. noncompliant with home CPAP. This could be likely contributing to dizziness. Strongly encourage CPAP compliance. (8) Obesity Priority: Secondary Status: Chronic Comments: BMI 58, weight 170 kg. Lifestyle modification strongly encouraged. Qualifiers: Obesity type: due to excess calories Obesity classification: adult class 2 (BMI 35 - 39.9) Serious obesity comorbidity presence: without serious comorbidity Body mass index: unspecified BMI Qualified Code(s): E66.09 - Other obesity due to excess calories - Discharge Medications Home Medications: Aspirin [Ecotrin] 162 mg PO DAILY 09/17/16 [History] Gabapentin [Neurontin] 800 mg PO BID 09/17/16 [History] Lisinopril [Zestril] 5 mg PO DAILY 09/17/16 [History] Pioglitazone HCl [Actos] 30 mg PO DAILY 09/17/16 [History] glyBURIDE [GlyBURIDE] 5 mg PO BIDWM 09/17/16 [History] metFORMIN [Glucophage] 1,000 mg PO BIDWM 09/17/16 [History] Clopidogrel [Plavix] 75 mg PO DAILY 12/15/16 [History] Atorvastatin [Lipitor] 40 mg PO HS 02/25/17 [History] Pantoprazole Sodium [Protonix] 40 mg PO DAILY 02/25/17 [History] Ranitidine HCl [Acid Instructional Design Specialist] 150 mg PO BID #14 tablet 09/03/17 [Rx] Sucralfate [Carafate] 1 gm PO QIDAC #12 tablet 09/03/17 [Rx] Allergies/Adverse Reactions: 3 Allergy/AdvReac Type Severity Reaction Status Date / Time armodafinil [From Nuvigil] Allergy Difficulty Verified 09/03/17 10:38 Breathing ceftriaxone [From Rocephin] Allergy See Verified 09/03/17 10:38 Comments Iodinated Contrast- Oral and Allergy Shakiness Verified 09/03/17 10:38 IV Dye [Iodinated Contrast Media - Oral and] tapentadol [From Nucynta] Allergy Difficulty Verified 09/03/17 10:38 Breathing escitalopram [From Lexapro] AdvReac Depression Verified 09/14/17 10:34 [place] AdvReac Depression Verified 09/14/17 10:34 Procedures/tests Complete & Pending: Procedures Performed prior 72 hours Category Date Time Status CT angio head wo/w con [CT] Routine Cat Scan 09/15/17 17:[address] angio neck [CT] Routine Cat Scan 09/15/17 17:50 Completed MR angio head wo con [MR] Routine MRI 09/15/17 14:37 Completed MR angio neck wo/w con [MR] Routine MRI 09/15/17 14:33 Completed MR head/brain wo con [MR] Routine MRI 09/15/17 14:33 Completed EV echocardiogram w enhance Routine Y 09/15/17 14:33 Completed Venous Doppler [EV venous imaging LE BI] Stat Y 09/16/17 15:06 Completed Date of admission: 09/15/17 14:26 Primary care physician: PCP NONE Consults: 09/15/17 14:36 Consult to Neurology [CONS] Routine Consulting Provider: [facility] Reason for Consult: tia Time Notified: 14:37 Call Completed: No Discharging clinician: Sunitha Grimm Anticipated date of discharge: 09/17/17 - Patient Status Disposition: Transfer Psychiatric Hosp Condition: Good Functional capacity at discharge: independent ambulation Overall status at discharge: patient is back to baseline - Discharge Instructions Instructions: Dizziness (GEN), Sleep Apnea Syndrome (DC), Obesity (DC) Follow Up With: NONE,PCP [Primary Care Provider] - (Please call your primary care physician for a follow-up with him within 1-2 weeks) - Diet and Activity Activity: increase activity as tolerated Diet: diabetic diet, low fat, low cholesterol Interval History: Seen and examined at bedside. No issues overnight, still with complaint of left lower leg swelling which is chronic. Patient states he has follow-up appointment with local wound care clinic next Thursday. He is still agreeable to return to inpatient psych unit upon discharge. Denies thoughts of harming or killing himself. No further lightheadedness/dizziness, expressive aphasia recurrence. Discussed case with 1 A and patient is unable to have Holter monitor on that unit per policy. Hospital course: See assessment and plan for hospital course - Time Spent with Patient Total time spent providing and/or coordinating discharge services: - Constitutional Vitals: Temp Pulse Resp BP Pulse Ox 97.6 F 62 14 109/66 97 02/08/18 04:37 09/17/17 04:37 09/17/17 04:37 09/17/17 04:37 09/17/17 04:37 General appearance: Present: A&O X 3, morbidly obese - Head Head exam: Present: atraumatic, normocephalic - Eye Eye exam: Present: PERRL, conjuntiva pink, sclera anicteric Pupils: Present: PERRL - Neck Neck exam general surgery: Present: supple, trachea midline. Absent: lymphadenopathy - Respiratory Respiratory exam: Present: CTAB. Absent: accessory muscle use, rales, rhonchi, wheezes - Cardiovascular Cardiovascular exam: Present: RRR, +S1, +S2. Absent: diastolic murmur, gallop, rubs, systolic murmur - GI/Abdominal GI/Abdominal exam: Present: normal bowel sounds, soft, no peritoneal signs. Absent: distended, tenderness - Extremities Exam Extremities exam: Present: pedal edema (left leg edema ), warm, radial pulses palpable and symmetrical. Absent: calf tenderness, cyanotic - Neurological Exam Neurological exam: Present: CN II-XII intact, oriented X3, no focal deficits. Absent: pronater drift, facial droop, speech deficit - Skin Skin exam: Present: dry, intact
[2017-09-17] MEDS: Aspirin Enteric Coated 325 MG Tablet PO SCH (08:45)
[2017-09-17] MEDS: Gabapentin 400 MG CAPSULE PO SCH (08:45)
[2017-09-17] MEDS: Famotidine 20 MG TABLET PO SCH (08:46)
[2017-09-17] MEDS: *HR* Pioglitazone 30 MG TABLET PO SCH (08:47)
[2017-09-17 10:53] VITALS: BP 122/72
== END 2017-09-17 13:00 ==
LOC: 3BNU
PROVIDERS: ADMIT Internal Medicine; ATTEND Registered Nurse

== ENCOUNTER 2017-09-17 12:55 | Inpatient (IN) ==
[2017-09-17] MEDS ORDERED: Mag Hydrox/Al Hydrox/Simeth 30 ML UDC PO PRN (15:17)
[2017-09-17] MEDS ORDERED: Acetaminophen 325 MG TABLET PO PRN (15:17)
[2017-09-17] MEDS ORDERED: Haloperidol Lactate 5 MG/ML VIAL IM PRN (15:17)
[2017-09-17] MEDS ORDERED: *HR* LORazepam 1 MG TABLET PO PRN (15:17)
[2017-09-17] MEDS ORDERED: *HR* LORazepam 2 MG/ML VIAL IM PRN (15:17)
[2017-09-17] MEDS ORDERED: MOM Conc 10 ML UD.LIQ PO PRN (15:17)
[2017-09-17] MEDS: Sucralfate 1 GM TABLET PO SCH ×2 (18:20→21:10)
[2017-09-17] MEDS: *HR* Metformin 500 MG TABLET PO SCH (18:23)
[2017-09-17] MEDS: *HR* GlyBURIDE 5 MG TABLET PO SCH (18:23)
[2017-09-17] MEDS: traZODone 50 MG TABLET PO PRN (21:09)
[2017-09-17] MEDS: Gabapentin 400 MG CAPSULE PO SCH (21:10)
[2017-09-17] MEDS: Famotidine 20 MG TABLET PO SCH (21:10)
[2017-09-17] MEDS: hydrOXYzine pamoate 25 MG CAPSULE PO PRN (21:13)
[2017-09-18] MEDS: Sucralfate 1 GM TABLET PO SCH (08:10)
[2017-09-18] MEDS: *HR* Pioglitazone 30 MG TABLET PO SCH (08:10)
[2017-09-18] MEDS: Aspirin Enteric Coated 81 MG Tablet PO SCH (08:10)
[2017-09-18] MEDS: Gabapentin 400 MG CAPSULE PO SCH ×2 (08:10→21:36)
[2017-09-18] MEDS: Famotidine 20 MG TABLET PO SCH ×2 (08:10→21:35)
[2017-09-18] MEDS: *HR* Metformin 500 MG TABLET PO SCH ×2 (08:10→16:41)
[2017-09-18] MEDS: *HR* GlyBURIDE 5 MG TABLET PO SCH ×2 (08:13→16:41)
--- NOTE | 2017-09-18 14:00 | Psychiatry History & Physical ---
Date of Encounter: 09/18/17 Time of Encounter: 13:30 History of Present Illness Patient Stated Chief Complaint: "I'm alright. Still a little anxious" Medicare Admission Attestation: For traditional Medicare patients the provided hospital inpatient services are reasonable and necessary and in the case of services not specified as inpatient -only under 42 CFR 419.22 (n), that they are appropriately provided as inpatient services in accordance 42 CFR 412.3. For Critical Access Hospital the patient may reasonably be expected to be discharged or transferred to a hospital within 96 hours after admission to the Critical Access Hospital. Admitted From: Intrahospital Transfer Plans for Post Hospital Care: Home History of Present Illness: Mr. Guillaume is a 47 year old male who was admitted to 1A psychiatric unit 3 days ago, but was moved to a medical floor after having a possible TIA. Patient was medically cleared and moved back to 1A psychiatric unit today, secondary to his previous history of suicidal ideation with plan. I interviewed the patient today he stated he was no longer feeling suicidal. We discussed his symptomatology. He states he always feels tired and depressed. He states that he has no interest in doing things and has a difficult time with focus, attention and concentration. He has low energy, he has poor sleep with a diagnosis of sleep apnea. He feels "emotional all the time". And had felt hopeless and helpless when initially brought to the hospital. He has a difficult time with anxiety during the day because of depressive ruminations and "over-thinking things". He feels stress and worried all the time. He finds himself procrastinating and having a hard time making decisions as he is afraid he will make the wrong decision. He has noticed that he is having difficult times with his memory and that he will forget days dates and times, where as this used to not that used to not happen. He has no auditory or visual hallucinations. He does not go days and days and days without sleep. He has no issues with impulsivity, grandiosity, hypersexuality, or spending too much money impulsively. He reports the falls asleep during the day. He is currently missing work and has a great deal stress over that does concern financially. He states his boss wants to fire him but human resources will not let him. Physically, he cannot do the work that he used to do any also can't mentally focus to do it at this point either. He has a hard time with focus and concentration and staying awake. We talked about previous medications that he had been on. He stated when he was younger he would stopped taking them secondary to sexual side effects. He stated some of them would work for for a while, then they would stop working. He had outpatient follow-up at [facility] where he get counseling. He was recently on a geriatric psych unit at [facility] and states that he did not feel like they did much for him. He is not currently on any psychiatric medications but is interested in getting back on medication targeting his depression. We talked extensively about his medical issues and how most likely apnea is contributing to his current mood and situation. I talk specifically about his sleep apnea and the fact that he does not wear C-PAP. He states that he was diagnosed 20 years ago with sleep apnea, but states that he cannot sleep and keep the mask on at night while he sleeps. So he has been using it. I went into great detail explaining to him that oxygenation level of the blood and body have a great effect on mood and phycial wellbeing. When he 1st thought he was having a TIA on the unit, his O2 sat was down to 94%. I explained that the brain and the body needs oxygen to be able to think clearly and to effectively modulate mood and situations. I said there is a high probability that this is what was causing his difficulty in concentration, his difficulty in making decisions and in his cognition. That in turn would result in him feeling depressed at not getting things done and anxious over not completing tasks. I talked to him a great deal about starting to use the C-PAP again. I wrote for a respiratory therapy consult for them to come down to see if they can fit him for a mask that fit appropriately, that would not fall off in the might be a better fit for him than the ones that he has had for years. He states that he has at least 6 masks at home but none of them fit right. He told me that he did not know about this information and not know the sleep apnea could affect his mood and physical being so much. He still would like to be put on an antidepressant again. He believes Prozac helped him in the past and is agreeable to starting Prozac 20 mg PO Q day to see if it helps with his depression and anxiety. He denied any active suicidal ideation at this time. Past Med Surg Social Fam HX - Past Medical History Medical history: arthritis, coronary artery disease, diabetes, GERD, hypertension, TIA, other - Past Psychiatric History Psychiatric history: Reports: anxiety, depression, previous psychiatric hospitalization ([facility]) Past psychiatric history details: [facility] medication trials and therapy: Zoloft, Prozac, Effexor, Lexapro, Celexa Family psychiatric history: Yes (Sons; Mood issues daughter; anxiety.) Family History of Suicide: None - Past Surgical History Surgical History: appendectomy, cholecystectomy - Social History Smoking Status: Never smoker Smokeless Tobacco Status: No Alcohol use: none Drug use: none Occupational status: employed Current living situation: Home - Independent Activity Level: Independent ambulation Recent Out of Country Travel Within the Last 8 Weeks: No Exposure or Possible Exposure to Illness During Travel: No - Family History Father History Unknown: Yes Adopted: No Hx Family Cardiac Disorders: Yes (ID) Hx Family Respiratory Disorders: No Hx Family Cancer: No Hx Family GI Disorders: Yes (Acid reflux) Hx Family Endocrine Disorder: No Hx Family Neuromuscular Disorders: No Hx Family Neurologic Disorders: No Hx Family HEENT Disorders: No Hx Family Autoimmune Disorders: No Medications & Allergies Aspirin [Ecotrin] 162 mg PO DAILY 09/17/16 [History] Gabapentin [Neurontin] 800 mg PO BID 09/17/16 [History] Lisinopril [Zestril] 5 mg PO DAILY 09/17/16 [History] Pioglitazone HCl [Actos] 30 mg PO DAILY 09/17/16 [History] glyBURIDE [GlyBURIDE] 5 mg PO BIDWM 09/17/16 [History] metFORMIN [Glucophage] 1,000 mg PO BIDWM 09/17/16 [History] Clopidogrel [Plavix] 75 mg PO DAILY 12/15/16 [History] Atorvastatin [Lipitor] 40 mg PO HS 02/25/17 [History] Pantoprazole Sodium [Protonix] 40 mg PO DAILY 02/25/17 [History] Ranitidine HCl [Acid Emergency Communications Dispatcher] 150 mg PO BID #14 tablet 09/03/17 [Rx] Sucralfate [Carafate] 1 gm PO QIDAC #12 tablet 09/03/17 [Rx] 3 Allergy/AdvReac Type Severity Reaction Status Date / Time armodafinil [From Nuvigil] Allergy Difficulty Verified 09/03/17 10:38 Breathing ceftriaxone [From Rocephin] Allergy See Verified 09/03/17 10:38 Comments Iodinated Contrast- Oral and Allergy Shakiness Verified 09/03/17 10:38 IV Dye [Iodinated Contrast Media - Oral and] tapentadol [From Nucynta] Allergy Difficulty Verified 09/03/17 10:38 Breathing escitalopram [From Lexapro] AdvReac Depression Verified 09/14/17 10:34 [place] AdvReac Depression Verified 09/14/17 10:34 Mental Status Exam Patient orientation: Yes Person, Yes Time, Yes Place, Yes Circumstance Level of alertness: Alert Patient appearance: Appropriate, Obese Behavior: anxious (mild) Psychomotor activity: Normal Eye contact: Maintains Eye Contact Mood description: Depressed (mild), Anxious (mild) Affect description: congruent with mood Speech pattern: Normal rate, Normal rhythm, Normal tone, Appropriate Speech volume: Normal Thought process: Intact Thought content: Yes Suicidal ideation (previously, resolving ) Attention span: Capable of Focused Attention, Capable of Sustained Attention Memory description: Grossly Intact Patient reliability: Reliable Historian Intelligence estimate: Average Judgment: Fair Insight: Partial Exam - HEENT Head exam IM: Present: atraumatic - Additional Information Additional Information: Morbid Obesity Results - Vital Signs Vital signs: Temp Pulse Resp BP 97.7 F 76 21 123/79 09/18/17 09:00 09/17/17 21:00 09/18/17 09:00 09/18/17 09:00 - Labs Labs: Laboratory Last Values POC Glucose 181 (58-89) H 09/18/17 08:07 Assessment and Plan (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 Risks, benefits, side effects, alternatives discussed w/pt: Yes (Prozac 20 mg po qd) Patient agreeable to treatment: Yes Plans for Post Hospital Care: Home Estimated Length of Stay (Days): 5 (2) Generalized anxiety disorder Current visit: Yes Status: Acute Plan: Admit inpatient for safety and stabilization, Close observation, Suicide Precautions per unit protocol, Encourage participation in unit milieu, Group Therapy, Monitor sleep Risks, benefits, side effects, alternatives discussed w /pt: Yes (SSRI started) Patient agreeable to treatment: Yes Plans for Post Hospital Care: Home Estimated Length of Stay (Days): 5
[2017-09-18] MEDS: FLUoxetine 20 MG CAPSULE PO SCH (14:19)
[2017-09-18] MEDS: hydrOXYzine pamoate 25 MG CAPSULE PO PRN (21:35)
[2017-09-18] MEDS: traZODone 50 MG TABLET PO PRN (21:36)
[2017-09-19] MEDS: *HR* Metformin 500 MG TABLET PO SCH (07:53)
[2017-09-19] MEDS: *HR* GlyBURIDE 5 MG TABLET PO SCH (07:54)
[2017-09-19] MEDS: Gabapentin 400 MG CAPSULE PO SCH (09:06)
[2017-09-19] MEDS: Aspirin Enteric Coated 81 MG Tablet PO SCH (09:07)
[2017-09-19] MEDS: Famotidine 20 MG TABLET PO SCH (09:07)
[2017-09-19] MEDS: FLUoxetine 20 MG CAPSULE PO SCH (09:08)
[2017-09-19] MEDS: *HR* Pioglitazone 30 MG TABLET PO SCH (09:08)
[2017-09-19 09:13] VITALS: BP 119/81
--- NOTE | 2017-09-19 10:23 | Discharge Summary ---
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 Status: Acute Comments: Sleep Apnea (2) Generalized anxiety disorder Status: Acute Medications - Discharge Medications Prescriptions: FLUoxetine HCl [Prozac] 20 mg PO DAILY 30 Days #30 capsule hydrOXYzine pamoate [HydrOXYzine Pamoate] 25 mg PO TID PRN 30 Days #60 capsule PRN Reason: Anxiety traZODone [TraZODone] 50 mg PO HS PRN 30 Days #30 tablet PRN Reason: Insomnia Aspirin [Ecotrin] 162 mg PO DAILY 09/17/16 [History] Gabapentin [Neurontin] 800 mg PO BID 09/17/16 [History] Lisinopril [Zestril] 5 mg PO DAILY 09/17/16 [History] Pioglitazone HCl [Actos] 30 mg PO DAILY 09/17/16 [History] glyBURIDE [GlyBURIDE] 5 mg PO BIDWM 09/17/16 [History] metFORMIN [Glucophage] 1,000 mg PO BIDWM 09/17/16 [History] Clopidogrel [Plavix] 75 mg PO DAILY 12/15/16 [History] Atorvastatin [Lipitor] 40 mg PO HS 02/25/17 [History] Pantoprazole Sodium [Protonix] 40 mg PO DAILY 02/25/17 [History] FLUoxetine HCl [Prozac] 20 mg PO DAILY 30 Days #30 capsule 09/19/17 [Rx] Famotidine [Pepcid] 20 mg PO BID tablet 09/19/17 [Rx] hydrOXYzine pamoate [HydrOXYzine Pamoate] 25 mg PO TID PRN 30 Days #60 capsule 09/19/17 [Rx] traZODone [TraZODone] 50 mg PO HS PRN 30 Days #30 tablet 09/19/17 [Rx] 3 Allergy/AdvReac Type Severity Reaction Status Date / Time armodafinil [From Nuvigil] Allergy Difficulty Verified 09/03/17 10:38 Breathing ceftriaxone [From Rocephin] Allergy See Verified 09/03/17 10:38 Comments Iodinated Contrast- Oral and Allergy Shakiness Verified 09/03/17 10:38 IV Dye [Iodinated Contrast Media - Oral and] tapentadol [From Nucynta] Allergy Difficulty Verified 09/03/17 10:38 Breathing escitalopram [From Lexapro] AdvReac Depression Verified 09/14/17 10:34 [place] AdvReac Depression Verified 09/14/17 10:34 Provider Date of admission: 09/17/17 12:55 Primary care physician: PCP NONE Consults: 09/18/17 10:03 Consult to Respiratory Therapy [CONS] Routine Reason for Consult: C-pap set up. Time Notified: 10:04 Call Completed: Yes Assessment and Plan - Patient/Caregiver Discharge Instructions Activity: resume usual activities as tolerated Diet: diabetic diet - Follow up Plan Follow up with: [facility] [Outside] - 10/05/17 3:00 pm (The above appointment is with Jeannie for outpatient mental health counseling services. You will also see Cuong Foote for outpatient psychiatric assessment and medication management services on 10/21/2017 at 8:00 AM.) Functional capacity at discharge: independent ambulation Overall status at discharge: Stable Disposition: Home, Self-Care Hospital Course Hospital course: Mr. Guillaume is a 47 year old male who was seen today and follow up having been admitted to the unit yesterday. Patient states that he slept well last night and feels that he has some peace of mind. He states he thought long and hard after our discussion yesterday and feels very enlightened and hopeful that his health can improve. He reiterated that he had no idea that not wearing his CPAP , and not being able to breathe probably, could have such a big effect on his mood and his cognition. He states that he will go home and try the masks again and find the one that fits best and use it routinely. If he can't find one that fits, he will call his provider and get refitted for a new one as it has been years since he tried, and they may have new ones on the market now that will adapt to form fit him better. He denies any mood issues at this point in time. He started back on his Prozac and denies any side effects. He is hopeful it will help long-term. He denies any suicidal/homicidal ideation. He states that he is no longer feeling depressed, as he is now hopeful and "has a path to move forward." He had some mild anxiety that he states the Vistaril helps with. There are no auditory or visual hallucinations or signs of psychosis. Does patient wish to continue nicotine replacement upon disc: No - Time Spent with Patient Total time spent providing and/or coordinating discharge services: 20 min Less than 30 minutes Quality - Multiple Antipsychotics Patient discharged on 2 or more antipsychotic medications: No Procedures - Procedures Procedures: Medication Management, Crisis Stabilization, Supportive Therapy, Group Therapy, Psychoeducational Therapy Mental Status Exam - Mental Status Exam Patient orientation: Yes Person, Yes Time, Yes Place, Yes Circumstance Level of alertness: Alert Patient appearance: Appropriate, Obese Behavior: calm Psychomotor activity: Normal Eye contact: Maintains Eye Contact Mood description: Euthymic/stable Patient description of mood: I feel hopeful now Affect description: congruent with mood Speech pattern: Normal rate, Normal rhythm, Normal tone, Appropriate Speech Volume: Normal Thought process: Intact, Logical, Linear, Goal Oriented Thought Content: Yes Intact Judgment: Good Insight: Full
== END 2017-09-19 11:25 | disposition home or self-care (01) | DRG 884 ==
LOC: 1ANU 12:55
PROVIDERS: ADMIT Psychiatry & Neurology Psychiatry; ATTEND Psychiatry & Neurology Psychiatry